=== PATIENT | male | born 1975 | race Caucasian/White ===

== ENCOUNTER → 2019-10-26 | Outpatient (CLI) | payer OTHER ==
[2019-10-26 14:56] LABS: HCT (SEDRATE) 44.9 % (39.2-51.8)
[2019-10-26 14:57] LABS: BASOPHILS # (AUTO) 0.02 x10^3/uL (0-0.1); BASOPHILS % (AUTO) 0 % (0-1); EOSINOPHILS # (AUTO) 0.06 x10^3/uL (0-0.4); EOSINOPHILS % (AUTO) 1 % (1-7); LYMPHOCYTES # (AUTO) 1.68 x10^3/uL (1-3.4); LYMPHOCYTES % (AUTO) 40 % (22-44); MD NO; MEAN CORPUSCULAR HGB CONC 34.5 g/dL (33.2-36.2); MEAN CORPUSCULAR VOLUME 95.8 fL (81-97); MEAN PLATELET VOLUME 8.1 fL (7.4-10.4); MONOCYTES % (AUTO) 7 % (2-9); NEUTROPHILS # (AUTO) 2.11 x10^3/uL (1.8-6.8); NEUTROPHILS % (AUTO) 51 % (42-75); PLATELET COUNT 158 x10^3/uL (130-400); RED CELL DISTRIBUTION WIDTH 12.5 % (9.4-14.8)
[2019-10-26 15:07] LABS: ALANINE AMINOTRANSFERASE 26 U/L (12-78); ALBUMIN 3.8 g/dL (3.4-5.0); ANION GAP 4 mmol/L (5-15); CALCIUM 8.7 mg/dL (8.5-10.1); CHLORIDE 110 mmol/L (98-107); CREATININE 0.83 mg/dL (0.7-1.3)
[2019-10-26 15:16] LABS: C-REACTIVE PROTEIN, QUANT < 0.02 mg/dL (0.02-0.49)
[2019-10-26 15:17] LABS: ALKALINE PHOSPHATASE 68 U/L (45-117); BILIRUBIN,TOTAL 0.3 mg/dL (0.2-1.0); TOTAL PROTEIN 6.9 g/dL (6.4-8.2)
== END | disposition home or self-care (01) ==
LOC: LAB 14:43
PROVIDERS: ATTEND Nurse Practitioner
DX: K21.9 Gastro-esophageal reflux disease without esophagitis (principal); R19.4 Change in bowel habit; R19.5 Other fecal abnormalities; R13.10 Dysphagia, unspecified
CPT/HCPCS: 36415; 80053; 82784; 83516; 83735; 84443; 85025; 85651; 86140; 86255

== ENCOUNTER 2020-07-09 07:50 | Emergency (ER) | payer OTHER ==
[~2020-07-09] VITALS: Ht 188 cm; Wt 87.0 kg
[2020-07-09 07:53] VITALS: BP 142/94
[2020-07-09] MEDS ORDERED: LIDOCAINE-MPF 1%, 5ML INFIL ONE (08:00)
[2020-07-09] MEDS ORDERED: DIPH,PERTUSS(ACELL),TET VAC/PF 0.5 ML IM-VACC ONE ×2 (08:00→08:03)
[2020-07-09] MEDS ORDERED: LIDOCAINE-MPF 1%, 5ML ONE (08:03)
[2020-07-09] MEDS ORDERED: NEOSPORIN OINT. PKT 1 PACKET ONE (08:30)
--- NOTE | 2020-07-09 08:41 | NUR ---
Patient given discharge instructions and they have confirmed that they understand the instructions. Patient ambulatory with steady gait.
== END 2020-07-09 08:43 | disposition home or self-care (01) ==
LOC: ED 08:14
DX: S51.812A Laceration without foreign body of left forearm, initial encounter (principal); X58.XXXA Exposure to other specified factors, initial encounter; Y93.89 Activity, other specified; Y92.69 Other specified industrial and construction area as the place of occurrence of the external cause; Y99.0 Civilian activity done for income or pay
CPT/HCPCS: 12001; 90471; 90715; 99283